=== PATIENT | female | born 1955 | race Caucasian/White ===

== ENCOUNTER 2020-08-21 15:53 | Outpatient (CLI) | payer MEDICARE ==
[2020-08-21] MEDS ORDERED: MAGN400T36 PO (22:17)
[2020-08-21] MEDS ORDERED: BUSP30TA PO (22:17)
[2020-08-21] MEDS ORDERED: TRAZ150T62 PO (22:17)
[2020-08-21] MEDS ORDERED: CALC-534 PO (22:17)
[2020-08-21] MEDS ORDERED: IBUP-1222 PO (22:17)
[2020-08-21] MEDS ORDERED: VENL150C PO (22:17)
[2020-08-21] MEDS ORDERED: ACET325C6 PO (22:17)
== END 2020-08-21 23:59 | disposition home or self-care (01) ==
LOC: CFH 15:53
PROVIDERS: ATTEND Family Medicine
DX: I80.02 Phlebitis and thrombophlebitis of superficial vessels of left lower extremity (principal)

== ENCOUNTER 2020-08-21 16:53 | Inpatient (IN) | payer MEDICARE ==
[~2020-08-21] VITALS: Ht 166.4 cm; Wt 95.8 kg
--- NOTE | 2020-08-21 17:03 | NUR ---
NO ANSWER FROM TRIAGE
--- NOTE | 2020-08-21 17:52 | NUR ---
PT WC'D TO ROOM 34 W/ C/O L FOOT DISCOMFORT STARTED MONDAY WITH MILD SWELLING, PAIN, AND MILD REDNESS AND WENT TO AND WAS PRESCRIBED DOXYCYCLINE FOR IT. PT NOTED TODAY THAT THE SWELLING AND REDNESS HAD SPREAD UPWARDS AND THEN STARTED EXPERIENCING REDNESS TO L INNER THIGH. PT RESTING ON GURNEY. NADN. MONITORS APPLIED. VSS. WARM BLANKET PROVIDED. CALL LIGHT IN REACH. PIV INITIATED.
[2020-08-21] MEDS ORDERED: PIPERACILLIN/TAZO 4.5 GM in SODIUM CHLORIDE 0.9% 100 ML IVPB ONE (18:00)
--- NOTE | 2020-08-21 18:09 | NUR ---
PT RESTING ON GURNEY. NADN. MORALES.
[2020-08-21 18:24] LABS: MICROSCOPIC INDICATED
[2020-08-21 18:28] LABS: BASOPHILS % (AUTO) 0 % (0-1); EOSINOPHILS % (AUTO) 0 % (1-7); LYMPHOCYTES % (AUTO) 12 % (22-44); MEAN CORPUSCULAR HEMOGLOBIN 31.1 pg (27.0-34.8); MEAN CORPUSCULAR HGB CONC 33.9 g/dL (32.4-35.8); MONOCYTES % (AUTO) 7 % (2-9); NEUTROPHILS % (AUTO) 82 % (42-75); PLATELET COUNT 238 x10^3/uL (130-400); RED BLOOD COUNT 4.54 x10^6/uL (3.82-5.3); RED CELL DISTRIBUTION WIDTH 13.3 % (9.6-15.2)
[2020-08-21] MEDS ORDERED: SODIUM CHLORIDE FLUSH 10ML SYR IVF ONE (18:30)
[2020-08-21 18:40] LABS: ALBUMIN 3.8 g/dL (3.4-5.0); ANION GAP 7 mmol/L (5-15); CALCIUM 9.2 mg/dL (8.5-10.1); CHLORIDE 110 mmol/L (98-107)
[2020-08-21 18:47] LABS: ALANINE AMINOTRANSFERASE 54 U/L (12-78); ALKALINE PHOSPHATASE 132 U/L (45-117); BILIRUBIN,TOTAL 0.7 mg/dL (0.2-1.0); TOTAL PROTEIN 7.5 g/dL (6.4-8.2)
--- NOTE | 2020-08-21 18:57 | NUR ---
YELLOW SLIP SENT TO PHARMACY FOR MEDS PER APR.
[2020-08-21] MEDS ORDERED: VANCOMYCIN 2,400 MG in SODIUM CHLORIDE 0.9% 500 ML IV ONE ×2 (19:00→21:30)
[2020-08-21] MEDS ORDERED: VANCOMYCIN PER PHARMACY MC ONE (19:00)
--- NOTE | 2020-08-21 19:00 | NUR ---
PT RESTING ON GURNEY. NADN. MROALES.
[2020-08-21] MEDS ORDERED: PIPERACILLIN/TAZO 4.5 GM in DEXTROSE 5% 100 ML IVPB ONE (19:30)
--- NOTE | 2020-08-21 19:57 | NUR ---
WOUND CARE PERFORMED FOR PT'S R LEG.
[2020-08-21] MEDS ORDERED: SODIUM CHLORIDE FLUSH 10ML SYR IVF PRN (20:30)
--- NOTE | 2020-08-21 20:35 | NUR ---
REPORT GIVEN TO LAZ DOZIER RN. ALL QUESTIONS ANSWERED. AWAITING PT TRANSPORT.
--- NOTE | 2020-08-21 21:03 | NUR ---
PT RESTING ON GURNEY. NADN. MORALES.
--- NOTE | 2020-08-21 21:12 | NUR ---
REPORT GIVEN TO ARDEN DEE RN.
--- NOTE | 2020-08-21 21:18 | NUR ---
REPORT FROM SOFIA KELLY
[2020-08-21] MEDS ORDERED: POLYETHYLENE GLYCOL 17 GM PACKET PO PRN (21:30)
[2020-08-21] MEDS ORDERED: MELATONIN 5 MG TABLET PO PRN (21:30)
[2020-08-21] MEDS ORDERED: PHARMACOKINETIC CONSULTATION MC ONE (21:30)
[2020-08-21] MEDS ORDERED: PHARMACOKINETIC MONITORING MC PRN (21:30)
[2020-08-21] MEDS ORDERED: VANCOMYCIN PER PHARMACY MC PRN (21:30)
[2020-08-21] MEDS ORDERED: METOCLOPRAMIDE 5 MG/ML, 2ML IVPush PRN (21:30)
[2020-08-21] MEDS ORDERED: BUSP30TA PO (22:17)
[2020-08-21] MEDS ORDERED: ACET325C6 PO (22:17)
[2020-08-21] MEDS ORDERED: IBUP-1222 PO (22:17)
[2020-08-21] MEDS ORDERED: CALC-534 PO (22:17)
[2020-08-21] MEDS ORDERED: VENL150C PO (22:17)
[2020-08-21] MEDS ORDERED: MAGN400T36 PO (22:17)
[2020-08-21] MEDS ORDERED: TRAZ150T62 PO (22:17)
[2020-08-21 22:20] VITALS: BP 147/93
[2020-08-21] MEDS: KETOROLAC 30 MG/1 ML IV SCH (23:11)
[2020-08-21] MEDS: CEFEPIME 2 GM in DEXTROSE 5% 100 ML IV SCH (23:12)
[2020-08-21] MEDS: ENOXAPARIN 40 MG/0.4 ML SQ SCH (23:17)
[2020-08-21] MEDS ORDERED: TRAZODONE 100MG TABLET ONE (23:34)
[2020-08-21] MEDS ORDERED: TRAZODONE 50MG TABLET ONE (23:34)
[2020-08-21] MEDS: TRAZODONE 150MG TABLET PO SCH (23:40)
[2020-08-21] MEDS: BUSPIRONE 10 MG TABLET PO SCH (23:41)
[2020-08-21] MEDS: HYDROmorphone 2 MG/ML, 1ML IVPush PRN (23:53)
[2020-08-22] MEDS: KETOROLAC 30 MG/1 ML IV SCH ×5 (03:22→19:44)
[2020-08-22 03:28] VITALS: BP 115/78
[2020-08-22] MEDS: CEFEPIME 2 GM in DEXTROSE 5% 100 ML IV SCH ×2 (06:32→15:54)
[2020-08-22] MEDS: ACETAMINOPHEN 325 MG TABLET PO PRN ×3 (06:38→21:49)
[2020-08-22] MEDS: HYDROmorphone 2 MG/ML, 1ML IVPush PRN (07:11)
[2020-08-22] MEDS: BUSPIRONE 10 MG TABLET PO SCH ×2 (07:12→19:44)
[2020-08-22 07:26] LABS: BASOPHILS % (AUTO) 1 % (0-1); EOSINOPHILS % (AUTO) 0 % (1-7); LYMPHOCYTES % (AUTO) 12 % (22-44); MEAN CORPUSCULAR HEMOGLOBIN 31.2 pg (27.0-34.8); MEAN CORPUSCULAR HGB CONC 34.4 g/dL (32.4-35.8); MEAN PLATELET VOLUME 7.7 fL (7.4-10.4); MONOCYTES % (AUTO) 9 % (2-9); NEUTROPHILS % (AUTO) 78 % (42-75); PLATELET COUNT 212 x10^3/uL (130-400); RED BLOOD COUNT 4.16 x10^6/uL (3.82-5.3); RED CELL DISTRIBUTION WIDTH 13.1 % (9.6-15.2)
[2020-08-22 07:32] LABS: ANION GAP 5 mmol/L (5-15); CHLORIDE 110 mmol/L (98-107); CREATININE 0.68 mg/dL (0.55-1.02)
[2020-08-22] MEDS: VENLAFAXINE 75 MG CAP ER PO SCH (07:46)
[2020-08-22] MEDS: MAGNESIUM OXIDE 400 MG TABLET PO SCH (07:47)
[2020-08-22] MEDS: CALCIUM/VITAMIN D3 250-125 TABLET PO SCH (07:47)
[2020-08-22 07:56] VITALS: BP 106/62
[2020-08-22] MEDS: LACTATED RINGERS 1,000 ML IV SCH ×2 (09:28→19:47)
[2020-08-22] MEDS: VANCOMYCIN 1,900 MG in SODIUM CHLORIDE 0.9% 250 ML IV SCH (14:04)
[2020-08-22 14:26] VITALS: BP 103/62
[2020-08-22 19:33] VITALS: BP 111/68
[2020-08-22] MEDS: TRAZODONE 150MG TABLET PO SCH (21:49)
[2020-08-22] MEDS: ENOXAPARIN 40 MG/0.4 ML SQ SCH (21:52)
[2020-08-23] MEDS: CEFEPIME 2 GM in DEXTROSE 5% 100 ML IV SCH ×3 (00:13→17:03)
[2020-08-23] MEDS: KETOROLAC 30 MG/1 ML IV SCH ×6 (00:13→20:15)
[2020-08-23 00:41] VITALS: BP 114/79
[2020-08-23] MEDS: LACTATED RINGERS 1,000 ML IV SCH (04:13)
[2020-08-23] MEDS: ACETAMINOPHEN 325 MG TABLET PO PRN ×4 (04:13→20:14)
[2020-08-23 08:30] VITALS: BP 118/84
[2020-08-23] MEDS: CALCIUM/VITAMIN D3 250-125 TABLET PO SCH (09:13)
[2020-08-23] MEDS: MAGNESIUM OXIDE 400 MG TABLET PO SCH (09:13)
[2020-08-23] MEDS: BUSPIRONE 10 MG TABLET PO SCH ×2 (09:13→20:14)
[2020-08-23] MEDS: VENLAFAXINE 75 MG CAP ER PO SCH (09:13)
[2020-08-23] MEDS: VANCOMYCIN 1,900 MG in SODIUM CHLORIDE 0.9% 250 ML IV SCH (09:48)
[2020-08-23 14:50] VITALS: BP 118/68
[2020-08-23] MEDS ORDERED: PROMETHAZINE 25 MG/ML, 1ML IM PRN (17:00)
[2020-08-23] MEDS ORDERED: PROMETHAZINE 25 MG/ML, 1ML ONE (17:01)
[2020-08-23] MEDS: TRAZODONE 150MG TABLET PO SCH (20:14)
[2020-08-23] MEDS: ENOXAPARIN 40 MG/0.4 ML SQ SCH (20:14)
[2020-08-23 20:23] VITALS: BP 123/78
[2020-08-24] MEDS: KETOROLAC 30 MG/1 ML IV SCH ×4 (00:09→11:59)
[2020-08-24] MEDS: CEFEPIME 2 GM in DEXTROSE 5% 100 ML IV SCH ×2 (00:10→08:21)
[2020-08-24] MEDS: ACETAMINOPHEN 325 MG TABLET PO PRN ×2 (00:12→04:12)
[2020-08-24] MEDS: VANCOMYCIN 1,900 MG in SODIUM CHLORIDE 0.9% 250 ML IV SCH (02:38)
[2020-08-24 04:03] VITALS: BP 118/71
[2020-08-24 07:13] VITALS: BP 136/90
[2020-08-24] MEDS ORDERED: ACETAMINOPHEN 500 MG TABLET ONE (08:18)
[2020-08-24] MEDS: MAGNESIUM OXIDE 400 MG TABLET PO SCH (08:25)
[2020-08-24] MEDS: CALCIUM/VITAMIN D3 250-125 TABLET PO SCH (08:25)
[2020-08-24] MEDS: VENLAFAXINE 75 MG CAP ER PO SCH (08:25)
[2020-08-24] MEDS: BUSPIRONE 10 MG TABLET PO SCH (08:26)
[2020-08-24] MEDS ORDERED: ACETAMINOPHEN 500 MG TABLET PO PRN (08:30)
[2020-08-24] MEDS ORDERED: CEPH-376 PO ×3 (11:39→12:15)
== END 2020-08-24 12:55 | disposition home or self-care (01) | DRG 603 ==
LOC: ED 19:10 → 4NW 20:05
PROVIDERS: ADMIT Internal Medicine; ATTEND Internal Medicine
DX: L03.116 Cellulitis of left lower limb (principal); Z88.5 Allergy status to narcotic agent; Z88.2 Allergy status to sulfonamides; Z88.8 Allergy status to other drugs, medicaments and biological substances; Z85.3 Personal history of malignant neoplasm of breast; Z86.718 Personal history of other venous thrombosis and embolism; Z90.10 Acquired absence of unspecified breast and nipple; Z90.710 Acquired absence of both cervix and uterus; Z92.21 Personal history of antineoplastic chemotherapy; Z92.3 Personal history of irradiation; Z90.49 Acquired absence of other specified parts of digestive tract
CPT/HCPCS: 36415; 80048; 80053; 80202; 81001; 83605; 85025; 87040; 87086; 96365; G0378; J1170; J1650; J1885; J2543; J2550; J3370; J7040; J7050; J7120

== ENCOUNTER 2020-08-31 12:53 | Outpatient (CLI) | payer MEDICARE ==
[~2020-08-31 12:53] MED LIST: ACET325C6 PO; BUSP30TA PO; CALC-534 PO; CEPH-376 PO; IBUP-1222 PO; MAGN400T36 PO; TRAZ150T62 PO; VENL150C PO
== END 2020-08-31 23:59 | disposition home or self-care (01) ==
LOC: WOUND 12:53
PROVIDERS: ATTEND Internal Medicine
DX: I87.331 Chronic venous hypertension (idiopathic) with ulcer and inflammation of right lower extremity (principal); L97.412 Non-pressure chronic ulcer of right heel and midfoot with fat layer exposed; I87.312 Chronic venous hypertension (idiopathic) with ulcer of left lower extremity; L97.422 Non-pressure chronic ulcer of left heel and midfoot with fat layer exposed; L97.212 Non-pressure chronic ulcer of right calf with fat layer exposed; L03.116 Cellulitis of left lower limb; L84 Corns and callosities; M00.9 Pyogenic arthritis, unspecified; J45.909 Unspecified asthma, uncomplicated; G47.00 Insomnia, unspecified; F32.9 Major depressive disorder, single episode, unspecified; F41.9 Anxiety disorder, unspecified; Z90.49 Acquired absence of other specified parts of digestive tract; Z90.12 Acquired absence of left breast and nipple; Z90.710 Acquired absence of both cervix and uterus; Z90.721 Acquired absence of ovaries, unilateral; Z98.51 Tubal ligation status; Z98.890 Other specified postprocedural states; Z79.899 Other long term (current) drug therapy; Z86.718 Personal history of other venous thrombosis and embolism
CPT/HCPCS: 83036; 97597; 97598; G0463

== ENCOUNTER → 2020-09-07 | Outpatient (CLI) | payer MEDICARE | END | disposition home or self-care (01) | LOC: WOUND 13:39 | PROVIDERS: ATTEND Internal Medicine | DX: I87.333 Chronic venous hypertension (idiopathic) with ulcer and inflammation of bilateral lower extremity (principal); L97.422 Non-pressure chronic ulcer of left heel and midfoot with fat layer exposed; L97.412 Non-pressure chronic ulcer of right heel and midfoot with fat layer exposed; L97.512 Non-pressure chronic ulcer of other part of right foot with fat layer exposed; L97.212 Non-pressure chronic ulcer of right calf with fat layer exposed; L03.116 Cellulitis of left lower limb; F41.9 Anxiety disorder, unspecified; J45.909 Unspecified asthma, uncomplicated; M00.9 Pyogenic arthritis, unspecified; F32.9 Major depressive disorder, single episode, unspecified; Z85.3 Personal history of malignant neoplasm of breast; Z90.710 Acquired absence of both cervix and uterus; Z88.5 Allergy status to narcotic agent; Z90.49 Acquired absence of other specified parts of digestive tract; Z88.8 Allergy status to other drugs, medicaments and biological substances; Z88.2 Allergy status to sulfonamides; Z86.718 Personal history of other venous thrombosis and embolism | CPT/HCPCS: 97597; 97598 ==

== ENCOUNTER → 2020-09-14 | Outpatient (CLI) | payer MEDICARE | END | disposition home or self-care (01) | LOC: WOUND 11:05 | PROVIDERS: ATTEND Internal Medicine | DX: I87.331 Chronic venous hypertension (idiopathic) with ulcer and inflammation of right lower extremity (principal); L97.412 Non-pressure chronic ulcer of right heel and midfoot with fat layer exposed; L97.212 Non-pressure chronic ulcer of right calf with fat layer exposed; L03.116 Cellulitis of left lower limb; F41.9 Anxiety disorder, unspecified; J45.909 Unspecified asthma, uncomplicated; M00.9 Pyogenic arthritis, unspecified; F32.9 Major depressive disorder, single episode, unspecified; Z85.3 Personal history of malignant neoplasm of breast; Z90.710 Acquired absence of both cervix and uterus; Z88.5 Allergy status to narcotic agent; Z90.49 Acquired absence of other specified parts of digestive tract; Z88.8 Allergy status to other drugs, medicaments and biological substances; Z88.2 Allergy status to sulfonamides; Z86.718 Personal history of other venous thrombosis and embolism | CPT/HCPCS: 97597 ==

== ENCOUNTER 2020-09-28 10:54 | Outpatient (CLI) | payer MEDICARE | END 2020-09-28 23:59 | disposition home or self-care (01) | LOC: WOUND 10:54 | PROVIDERS: ATTEND Surgery | DX: I87.331 Chronic venous hypertension (idiopathic) with ulcer and inflammation of right lower extremity (principal); L97.412 Non-pressure chronic ulcer of right heel and midfoot with fat layer exposed; L97.212 Non-pressure chronic ulcer of right calf with fat layer exposed; L03.116 Cellulitis of left lower limb; F41.9 Anxiety disorder, unspecified; J45.909 Unspecified asthma, uncomplicated; M00.9 Pyogenic arthritis, unspecified; F32.9 Major depressive disorder, single episode, unspecified; Z85.3 Personal history of malignant neoplasm of breast; Z90.710 Acquired absence of both cervix and uterus; Z88.5 Allergy status to narcotic agent; Z90.49 Acquired absence of other specified parts of digestive tract; Z88.8 Allergy status to other drugs, medicaments and biological substances; Z88.2 Allergy status to sulfonamides; Z86.718 Personal history of other venous thrombosis and embolism | CPT/HCPCS: G0463 ==

== ENCOUNTER 2020-10-02 08:22 | Outpatient (CLI) | payer MEDICARE | END 2020-10-02 23:59 | disposition home or self-care (01) | LOC: WOUND 08:22 | PROVIDERS: ATTEND Internal Medicine | DX: I87.331 Chronic venous hypertension (idiopathic) with ulcer and inflammation of right lower extremity (principal); L97.412 Non-pressure chronic ulcer of right heel and midfoot with fat layer exposed; L97.212 Non-pressure chronic ulcer of right calf with fat layer exposed; L03.116 Cellulitis of left lower limb; F41.9 Anxiety disorder, unspecified; J45.909 Unspecified asthma, uncomplicated; M00.9 Pyogenic arthritis, unspecified; F32.9 Major depressive disorder, single episode, unspecified; Z85.3 Personal history of malignant neoplasm of breast; Z90.710 Acquired absence of both cervix and uterus; Z88.5 Allergy status to narcotic agent; Z90.49 Acquired absence of other specified parts of digestive tract; Z88.8 Allergy status to other drugs, medicaments and biological substances; Z88.2 Allergy status to sulfonamides; Z86.718 Personal history of other venous thrombosis and embolism | CPT/HCPCS: G0463 ==

== ENCOUNTER 2020-10-12 11:04 | Outpatient (CLI) | payer MEDICARE | END 2020-10-12 23:59 | disposition home or self-care (01) | LOC: WOUND 11:04 | PROVIDERS: ATTEND Internal Medicine | DX: I87.331 Chronic venous hypertension (idiopathic) with ulcer and inflammation of right lower extremity (principal); L97.412 Non-pressure chronic ulcer of right heel and midfoot with fat layer exposed; L97.212 Non-pressure chronic ulcer of right calf with fat layer exposed; L03.116 Cellulitis of left lower limb; F41.9 Anxiety disorder, unspecified; J45.909 Unspecified asthma, uncomplicated; M00.9 Pyogenic arthritis, unspecified; F32.9 Major depressive disorder, single episode, unspecified; Z85.3 Personal history of malignant neoplasm of breast; Z90.710 Acquired absence of both cervix and uterus; Z88.5 Allergy status to narcotic agent; Z90.49 Acquired absence of other specified parts of digestive tract; Z88.8 Allergy status to other drugs, medicaments and biological substances; Z88.2 Allergy status to sulfonamides; Z86.718 Personal history of other venous thrombosis and embolism | CPT/HCPCS: 97597 ==

== ENCOUNTER 2020-10-30 09:51 | Outpatient (CLI) | payer MEDICARE | END 2020-10-30 23:59 | disposition home or self-care (01) | LOC: WOUND 09:51 | PROVIDERS: ATTEND Internal Medicine | DX: I87.331 Chronic venous hypertension (idiopathic) with ulcer and inflammation of right lower extremity (principal); L97.412 Non-pressure chronic ulcer of right heel and midfoot with fat layer exposed; L97.212 Non-pressure chronic ulcer of right calf with fat layer exposed; L03.116 Cellulitis of left lower limb; F41.9 Anxiety disorder, unspecified; J45.909 Unspecified asthma, uncomplicated; M00.9 Pyogenic arthritis, unspecified; F32.9 Major depressive disorder, single episode, unspecified; Z85.3 Personal history of malignant neoplasm of breast; Z90.710 Acquired absence of both cervix and uterus; Z88.5 Allergy status to narcotic agent; Z90.49 Acquired absence of other specified parts of digestive tract; Z88.8 Allergy status to other drugs, medicaments and biological substances; Z88.2 Allergy status to sulfonamides; Z86.718 Personal history of other venous thrombosis and embolism | CPT/HCPCS: G0463 ==